=== PATIENT | female | born 1980 | race Caucasian/White ===

== ENCOUNTER 2023-10-20 16:23 | Emergency (ER) | payer SELFPAY ==
[~2023-10-20] VITALS: Ht 157.5 cm; Wt 64.0 kg
[2023-10-20 16:52] VITALS: O2SAT 99
[2023-10-20] MEDS ORDERED: HYDROCODONE/ACETAMINOPHEN 10/325MG TABLET PO ONE (17:30)
[2023-10-20] MEDS ORDERED: LIDO700A15 TP (19:01)
[2023-10-20] MEDS ORDERED: NAPR-1176 MT (19:01)
[2023-10-20] MEDS ORDERED: HYDROCODONE/ACETAMINOPHEN 10/325MG TABLET PO NR (20:00)
[2023-10-20 20:11] VITALS: BP 131/98; PULSE 84; RESP 16; TEMP 98.7
== END 2023-10-20 20:11 | disposition home or self-care (01) ==
LOC: ER 16:23 → EDBD 16:23 → ER 20:11
DX: S00.83XA Contusion of other part of head, initial encounter (principal); M25.551 Pain in right hip; M25.572 Pain in left ankle and joints of left foot; W18.39XA Other fall on same level, initial encounter; Y93.89 Activity, other specified; Y92.89 Other specified places as the place of occurrence of the external cause; Y99.8 Other external cause status
CPT/HCPCS: 73502; 73600; 99284